=== PATIENT | female | born 2000 | race Hispanic/Latino ===

== ENCOUNTER 2022-11-25 21:49 | Emergency (ER) | payer OTHER, MEDICAID, SELFPAY ==
[2022-11-25] VITALS (8 sets, daily range): BP systolic 108–121; BP diastolic 56–77; PULSE 66–122; RESP 18–26; TEMP 37.6; O2SAT 99–100; BMI 37.8
--- NOTE | 2022-11-25 22:19 | ED_ITS ---
HPI - Nausea/Vomiting/Diarrhea General Chief complaint: Nausea/Vomiting/Diarrhea Stated complaint: N/D/V AND DIZZY X1 DAY Time Seen by Provider: 11/25/22 22:03 Source: patient and family Mode of arrival: Ambulatory History of Present Illness HPI Narrative: 22-year-old female daily smoker with a psychiatric history presents with family members in the chief complaint of a week's worth of multiple symptoms including nausea, vomiting and diarrhea. She is had multiple episodes of each and is now feeling dizzy, weak and lightheaded. She denies any runny nose or sore throat but has had the occasional dry cough. She is had subjective fever and body aches. She denies any recent travel, exposure to ill persons or recent antibiotic use. She does have some crampy abdominal discomfort that seems to build until a loose stool at which point her symptoms improved briefly Related Data Allergies Allergy/AdvReac Type Severity Reaction Status Date / Time peach Allergy Verified 11/25/22 22:15 strawberry Allergy Verified 11/25/22 22:15 Review of Systems Review of Systems Narrative: GENERAL: See HPI HEENT: See HPI RESPIRATORY: Denies dyspnea, cough, wheezing, hemoptysis, sputum. CARDIOVASCULAR: Denies chest pain, palpitations, orthopnea, edema, GASTROINTESTINAL: See HPI : Denies dysuria, frequency, incontinence, hematuria, urinary retention. MUSCULOSKELETAL: denies weakness, joint pain, or bony pain SKIN: Denies rash, skin lesions, or other NEUROLOGIC: Denies weakness, headache, numbness, change in speech, confusion, seizures, incoordination. PSYCHIATRIC: No concerning psychosocial issues. 12 point review of systems is negative except for those stated above Patient History Social History Smoking Status: Current some day smoker Smoking Status: Current some day smoker tobacco type: cigarettes alcohol intake frequency: 0-2 drinks per day Substance Use Type: does not use Exam Narrative Exam Narrative: GENERAL: [22] year old patient appears stated age. Well-developed patient, in mild distress. HEAD: Atraumatic. Normocephalic. EYES: Pupils equal round and reactive. Extraocular motions intact. No scleral icterus. No injection or drainage. ENT: Nose without bleeding, purulent drainage. Throat without erythema, tonsillar hypertrophy or exudate. Airway patent. NECK: Trachea midline. Non tender CARDIOVASCULAR: Tachycardic but regular rhythm without murmurs, gallops, or rubs. RESPIRATORY: Clear to auscultation. Breath sounds equal bilaterally. No wheezes, rales, or rhonchi. GASTROINTESTINAL: Abdomen soft, mild abdominal cramping, nondistended. EXTREMITIES: No edema or joint tenderness. BACK: Nontender without deformity or crepitance. No flank tenderness. NEURO: AOx3. SKIN: No rash or erythema of visible areas Initial Vital Signs Initial Vital Signs: Vital Signs Temperature 99.7 F H 11/25/22 22:04 Pulse Rate 122 H 11/25/22 22:04 Respiratory Rate 18 11/25/22 22:04 Blood Pressure 117/71 11/25/22 22:04 Pulse Oximetry 99 11/25/22 22:04 Oxygen Delivery Method Room Air 11/25/22 22:04 Course Orders Ordered: ED Orders 11/25/22 22:26 Ictotest Urine Stat Urine Microscopic Stat 11/25/22 22:29 GI Panel (Film Array) Stat 11/25/22 22:39 Complete Blood Count AUTO DIFF Stat Comprehensive Metabolic Panel Stat Lactate (Lactic Acid) Stat 11/25/22 22:45 Covid-19 + FLU A/B + RSV - PCR Routine Discontinued Medications Sodium Chloride (Normal Saline 0.9%) 1,000 mls @ 1,000 mls/hr IV BOLUS ONE Stop: 11/25/22 23:15 Last Infusion: 11/25/22 23:57 Dose: 0 mls/hr Documented By: Admin: 11/25/22 22:45 Dose: 1,000 mls/hr Documented By: AURY Sodium Chloride (Normal Saline 0.9%) 1,000 mls @ 1,000 mls/hr IV BOLUS ONE Stop: 11/26/22 01:22 Last Infusion: 11/26/22 01:45 Dose: 0 mls/hr Documented By: Admin: 11/26/22 00:24 Dose: 1,000 mls/hr Documented By: AURY Sodium Chloride (Normal Saline 0.9%) 1,000 mls @ 1,000 mls/hr IV BOLUS ONE Stop: 11/26/22 01:22 Last Admin: 11/26/22 00:25 Dose: Not Given Documented By: AURY Sodium Chloride (Normal Saline 0.9%) 1,000 mls @ 1,000 mls/hr IV BOLUS ONE Stop: 11/26/22 02:45 Last Admin: 11/26/22 01:49 Dose: 1,000 mls/hr Documented By: AURY Ondansetron HCl (Ondansetron 4 Mg/2 Ml Inj) 4 mg IV NOW ONE Stop: 11/25/22 22:17 Last Admin: 11/25/22 22:46 Dose: 4 mg Documented By: AURY Pantoprazole Sodium (Pantoprazole 40 Mg Vial) 40 mg IV NOW ONE Stop: 11/25/22 22:17 Last Admin: 11/25/22 22:46 Dose: 40 mg Documented By: AURY Vital Signs Vital signs: Vital Signs - 8 hr 11/25/22 22:04 11/25/22 22:36 11/25/22 22:42 Temperature 99.7 F H Pulse Rate 122 H 66 119 H Respiratory Rate 18 26 H Blood Pressure 117/71 Pulse Oximetry 99 100 Oxygen Delivery Method Room Air 11/25/22 22:42 11/25/22 23:00 11/25/22 23:02 Temperature Pulse Rate 113 H Respiratory Rate 25 H Blood Pressure 108/56 L 111/77 Pulse Oximetry 100 Oxygen Delivery Method 11/25/22 23:02 11/25/22 23:15 11/25/22 23:15 Temperature Pulse Rate 112 H 103 H Respiratory Rate 25 H 23 Blood Pressure 120/77 Pulse Oximetry 100 100 Oxygen Delivery Method 11/25/22 23:30 11/25/22 23:30 11/25/22 23:46 Temperature Pulse Rate 105 H 107 H Respiratory Rate 22 Blood Pressure 116/72 Pulse Oximetry 100 100 Oxygen Delivery Method 11/25/22 23:46 11/26/22 00:00 11/26/22 00:00 Temperature Pulse Rate 115 H Respiratory Rate Blood Pressure 121/67 113/67 Pulse Oximetry 99 Oxygen Delivery Method 11/26/22 00:15 11/26/22 00:15 11/26/22 00:20 Temperature Pulse Rate 117 H 107 H Respiratory Rate Blood Pressure 84/53 L Pulse Oximetry 99 99 Oxygen Delivery Method 11/26/22 00:21 11/26/22 00:21 11/26/22 00:24 Temperature Pulse Rate 107 H 107 H Respiratory Rate Blood Pressure 107/56 L Pulse Oximetry 100 100 Oxygen Delivery Method 11/26/22 00:24 11/26/22 00:27 11/26/22 00:27 Temperature Pulse Rate 108 H Respiratory Rate Blood Pressure 104/55 L 103/54 L Pulse Oximetry 99 Oxygen Delivery Method 11/26/22 00:30 11/26/22 00:30 11/26/22 01:00 Temperature Pulse Rate 107 H 104 H Respiratory Rate Blood Pressure 97/58 L Pulse Oximetry 100 100 Oxygen Delivery Method 11/26/22 01:08 11/26/22 01:08 11/26/22 01:10 Temperature Pulse Rate 106 H Respiratory Rate Blood Pressure 96/54 L 95/55 L Pulse Oximetry 100 Oxygen Delivery Method 11/26/22 01:10 11/26/22 01:15 11/26/22 01:15 Temperature Pulse Rate 105 H 102 H Respiratory Rate Blood Pressure 98/52 L Pulse Oximetry 100 100 Oxygen Delivery Method 11/26/22 01:20 11/26/22 01:20 11/26/22 01:25 Temperature Pulse Rate 102 H Respiratory Rate Blood Pressure 96/53 L 92/51 L Pulse Oximetry 100 Oxygen Delivery Method 11/26/22 01:25 11/26/22 01:30 11/26/22 01:30 Temperature Pulse Rate 101 H 105 H Respiratory Rate Blood Pressure 94/53 L Pulse Oximetry 100 99 Oxygen Delivery Method 11/26/22 01:35 11/26/22 01:35 11/26/22 01:39 Temperature Pulse Rate 103 H Respiratory Rate Blood Pressure 89/54 L 97/55 L Pulse Oximetry 100 Oxygen Delivery Method 11/26/22 01:39 11/26/22 01:40 11/26/22 01:40 Temperature Pulse Rate 105 H 106 H Respiratory Rate Blood Pressure 92/59 L Pulse Oximetry 100 100 Oxygen Delivery Method 11/26/22 01:45 11/26/22 01:45 11/26/22 01:49 Temperature Pulse Rate 103 H 105 H Respiratory Rate Blood Pressure 98/56 L Pulse Oximetry 100 100 Oxygen Delivery Method 11/26/22 01:50 Temperature Pulse Rate Respiratory Rate Blood Pressure 100/57 L Pulse Oximetry Oxygen Delivery Method MDM - Nausea/Vomiting/Diarrhea Lab Data 11/25/22 22:39 11/25/22 22:39 Labs: Lab Results 11/25/22 11/25/22 11/25/22 Range/Units 22:26 22:26 22:29 WBC (4.5-11.0) X10^3/uL RBC (4.0-5.2) X10^6/uL Hgb (12.0-16.0) g/dL Hct (36-46) % MCV (80-100) fL MCH (26-34) PG MCHC (30-36) % RDW (11.6-14.8) % Plt Count (150-400) X10^3/uL Neut % (Auto) (50-75) % Lymph % (Auto) (25-40) % [place] % (Auto) (3-14) % Eos % (Auto) (2-4) % Baso % (Auto) (0-2) % Neut # (Auto) (5204-0559) /uL Lymph # (Auto) (7238-4126) /uL [place] # (Auto) (0-900) /uL Eos # (Auto) (0-450) /uL Baso # (Auto) (0-100) /uL Sodium (137-145) mmol/L Potassium (3.4-5.1) mmol/L Chloride (98-107) mmol/L Carbon Dioxide (22-32) mmol/L BUN (7-17) mg/dL Creatinine (0.52-1.04) mg/dL Estimated GFR (>60) mL/min BUN/Creatinine Ratio (6-22) Glucose (70-100) mg/dL Lactate (0.7-2.1) mmol/L Calcium (8.4-10.2) mg/dL Total Bilirubin (0.2-1.3) mg/dL AST (14-36) IU/L ALT (<35) IU/L Alkaline Phosphatase (38-126) U/L Total Protein (6.3-8.2) g/dL Albumin (3.5-5.0) g/dL Globulin (1.7-4.1) g/dL Albumin/Globulin Ratio (1.0-2.8) Ur Bilirubin Confirm Negative (Negative) Urine RBC 5-10/hpf H (0-5/HPF) Urine WBC None seen (0-5/HPF) Ur Squamous Epith Cells 1-5 /hpf (0-5/HPF) Amorphous Sediment 1+ Urine Bacteria Few (2-10) H (None) Urine Mucus 2+ H (Negative) Ur Culture Indicated? Cult not indicated Stl C. cayetanensis PCR Not detected (Not Detect) Stool Rotavirus (PCR) Not detected (Not Detect) Stool Adenovirus (PCR) Not detected (Not Detect) Stool Astrovirus (PCR) Not detected (Not Detect) Stool Cryptosporidium PCR Not detected (Not Detect) Stl E.coli Shiga Tox PCR Not detected (Not Detect) St Sh/Enteroin Ecoli PCR Not detected (Not Detect) Stool E coli O157 PCR Not detected (Not Detect) Stl Enterotoxigenic E PCR Not detected (Not Detect) Stool EPEC (PCR) Not detected (Not Detect) Stl E. histolytica PCR Not detected (Not Detect) Stool Giardia Lamblia PCR Not detected (Not Detect) Stool Sapovirus (PCR) Not detected (Not Detect) Stl P. shigelloides PCR Not detected (Not Detect) St Y.enterocolitica PCR Not detected (Not Detect) Stool Vibrio (PCR) Not detected (Not Detect) Stl Vibrio cholerae PCR Not detected (Not Detect) Stl Enteroaggr Ecoli PCR Not detected (Not Detect) Stl Norovirus GI/GII PCR Detected H (Not Detect) Campylobacter (PCR) Not detected (Not Detect) C. difficile Tox (PCR) Not detected (Not Detect) SARS-CoV-2 (PCR) Cancelled Influenza A (RT-PCR) Cancelled Influenza B (RT-PCR) Cancelled RSV (PCR) Cancelled Salmonella (PCR) Not detected (Not Detect) 11/25/22 11/25/22 11/25/22 Range/Units 22:39 22:39 22:39 WBC 11.3 H (4.5-11.0) X10^3/uL RBC 5.11 (4.0-5.2) X10^6/uL Hgb 14.2 (12.0-16.0) g/dL Hct 42.0 (36-46) % MCV 82.1 (80-100) fL MCH 27.7 (26-34) PG MCHC 33.8 (30-36) % RDW 14.0 (11.6-14.8) % Plt Count 282 (150-400) X10^3/uL Neut % (Auto) 84.0 H (50-75) % Lymph % (Auto) 9.9 L (25-40) % [place] % (Auto) 5.2 (3-14) % Eos % (Auto) 0.7 L (2-4) % Baso % (Auto) 0.2 (0-2) % Neut # (Auto) 9500 H (8102-2206) /uL Lymph # (Auto) 1100 (7135-0229) /uL [place] # (Auto) 600 (0-900) /uL Eos # (Auto) 100 (0-450) /uL Baso # (Auto) 0 (0-100) /uL Sodium 135 L (137-145) mmol/L Potassium 4.0 (3.4-5.1) mmol/L Chloride 103 (98-107) mmol/L Carbon Dioxide 21 L (22-32) mmol/L BUN 16 (7-17) mg/dL Creatinine 0.75 (0.52-1.04) mg/dL Estimated GFR > 60 (>60) mL/min BUN/Creatinine Ratio 21.3 (6-22) Glucose 91 (70-100) mg/dL Lactate 1.3 (0.7-2.1) mmol/L Calcium 9.1 (8.4-10.2) mg/dL Total Bilirubin 1.0 (0.2-1.3) mg/dL AST 21 (14-36) IU/L ALT 22 (<35) IU/L Alkaline Phosphatase 74 (38-126) U/L Total Protein 8.5 H (6.3-8.2) g/dL Albumin 4.7 (3.5-5.0) g/dL Globulin 3.8 (1.7-4.1) g/dL Albumin/Globulin Ratio 1.2 (1.0-2.8) Ur Bilirubin Confirm (Negative) Urine RBC (0-5/HPF) Urine WBC (0-5/HPF) Ur Squamous Epith Cells (0-5/HPF) Amorphous Sediment Urine Bacteria (None) Urine Mucus (Negative) Ur Culture Indicated? Stl C. cayetanensis PCR (Not Detect) Stool Rotavirus (PCR) (Not Detect) Stool Adenovirus (PCR) (Not Detect) Stool Astrovirus (PCR) (Not Detect) Stool Cryptosporidium PCR (Not Detect) Stl E.coli Shiga Tox PCR (Not Detect) St Sh/Enteroin Ecoli PCR (Not Detect) Stool E coli O157 PCR (Not Detect) Stl Enterotoxigenic E PCR (Not Detect) Stool EPEC (PCR) (Not Detect) Stl E. histolytica PCR (Not Detect) Stool Giardia Lamblia PCR (Not Detect) Stool Sapovirus (PCR) (Not Detect) Stl P. shigelloides PCR (Not Detect) St Y.enterocolitica PCR (Not Detect) Stool Vibrio (PCR) (Not Detect) Stl Vibrio cholerae PCR (Not Detect) Stl Enteroaggr Ecoli PCR (Not Detect) Stl Norovirus GI/GII PCR (Not Detect) Campylobacter (PCR) (Not Detect) C. difficile Tox (PCR) (Not Detect) SARS-CoV-2 (PCR) Influenza A (RT-PCR) Influenza B (RT-PCR) RSV (PCR) Salmonella (PCR) (Not Detect) Point of Care Testing Test Results Negative Glucose POC 91 Urine Dip Bedside Urine Glucose Negative Bedside Urine Bilirubin + 1 Bedside Urine Ketone - Negative Urine Specific [place] 1.025 Bedside Urine Occult Blood +++ Bedside Urine pH 6.0 Bedside Urine Protein - Negative Bedside Urine Urobilinogen - Negative Bedside Urine Nitrite - Negative Bedside Urine Leukocytes - Negative Esterase MDM Narrative Medical decision making narrative: [22] year old patient presents with Multiple etiologies for patient's symptoms considered including, but not limited to: [dehydration, viral diarrhea] Prior Charts reviewed in our EMR Primary Historian: patient Labs reviewed and interpreted by myself: GI panel notes norovirus. Serum labs note a slight leukocytosis and no true left shift. Chemistries and renal function appropriate Patient's symptoms improved over duration of stay with above-stated therapies. Patient has received a few L of fluids, her heart rate is down into the 90s, blood pressure in the 110s, she is tolerating orals and ambulating through the department requesting discharge Findings and discharge diagnosis discussed with patient/family followed by verbalization of understanding Return precautions discussed with patient/family whom verbalize understanding of diagnosis and plan Discharge Plan Departure Patient Disposition: Home Clinical Impression: Norovirus Instructions: DI for Dehydration -- Adult, DI for Norovirus Infection Activity Restrictions/Additional Instructions: *You have been diagnosed with [norovirus] * As we discussed your history and physical exam as well as labs and imaging are very reassuring. There is no evidence of any severe diagnoses that would require a specific or immediate intervention. *What to do: *Please continue to take your regular medications as directed. *Please follow up with your primary care provider in 2-3 days, call for an appointment. Let them know you were seen in the Emergency Department and that we ask that you be seen in follow up. We will electronically transmit a record of today's note if your PCP is in our system *Please consider a clear liquid diet for the next 24-48 hours and then slowly advance to regular as tolerated. Also, try to avoid alcohol, nicotine, caffeine, spicy, acidic or fatty foods as this may worsen your symptoms *If you do not have a primary care provider please contact the [facility] Resource line at [phone]. They will ask some questions about your medical history and help get you set up with a doctor in the community. *Return to Emergency Department if you should have any new, worsening or concerning symptoms, such as [fever greater than 101 F, shaking chills, worsening pain, persistent vomiting or other bothersome symptoms] Referrals: Conrado Quezada MD [Primary Care Provider] - Stand Alone Forms: Patient Portal/API
[2022-11-25] MEDS: SODIUM CHLORIDE 0.9% 1,000 ML 1000 ML IV (22:45)
[2022-11-25] MEDS: ONDANSETRON 4 MG/2 ML INJ IV (22:46)
[2022-11-25] MEDS: PANTOPRAZOLE 40 MG VIAL IV (22:46)
[2022-11-25 22:50] LABS: Add Manual Diff / Slide Review NO; Basophils Absolute Auto 0 /uL (0-100); Basophils Percent Auto 0.2 % (0-2); Eosinophils Absolute Auto 100 /uL (0-450); Eosinophils Percent Auto 0.7 % (2-4); Hemoglobin 14.2 g/dL (12.0-16.0); Lymphocytes Absolute Auto 1100 /uL (1100-4500); Lymphocytes Percent Auto 9.9 % (25-40); Mean Corpuscular HGB Conc 33.8 % (30-36); Mean Corpuscular Hemoglobin 27.7 PG (26-34); Mean Corpuscular Volume 82.1 fL (80-100); Monocytes Absolute Auto 600 /uL (0-900); Monocytes Percent Auto 5.2 % (3-14); Neutrophils Absolute Auto 9500 /uL (1500-7000); Platelet Count 282 X10^3/uL (150-400); Red Blood Cell Count 5.11 X10^6/uL (4.0-5.2); White Blood Cell Count 11.3 X10^3/uL (4.5-11.0)
--- NOTE | 2022-11-25 22:54 | PC.NURSE ---
Pt reports worsening N&V and diarrhea over the last week with some SOB. Pt feels really cold and almost passes out when walking. Pt denies abdominal pain & chest pain. Pt denies recent travel, denies sick contacts. Hx of depression and pt is on 75mg of bupropion. LMP 10/24/22. Call light within reach. Encouraged to use for needs.
[2022-11-25 23:03] LABS: Lactate (Lactic Acid) 1.3 mmol/L (0.7-2.1)
[2022-11-25 23:04] LABS: Alanine Aminotransferase 22 IU/L (<35); Albumin 4.7 g/dL (3.5-5.0); Albumin Globulin Ratio 1.2 (1.0-2.8); Alkaline Phosphatase 74 U/L (38-126); Aspartate Aminotransferase 21 IU/L (14-36); BUN Creatinine Ratio 21.3 (6-22); Blood Urea Nitrogen 16 mg/dL (7-17); Calcium 9.1 mg/dL (8.4-10.2); Carbon Dioxide 21 mmol/L (22-32); Chloride 103 mmol/L (98-107); Estimated Glomerular Filt Rate > 60 mL/min (>60); Globulin 3.8 g/dL (1.7-4.1); Glucose 91 mg/dL (70-100); HEMOLYSIS 21 (0-50); Sodium 135 mmol/L (137-145); Total Protein 8.5 g/dL (6.3-8.2)
[2022-11-25 23:20] LABS: RBC Urine 5-10/HPF (0-5/HPF); WBC Urine None Seen (0-5/HPF)
[2022-11-25 23:21] LABS: Amorphous Sediment Urine 1+; Bacteria Urine Few (2-10); Squamous Epithelial Cell Urine 1-5 /HPF (0-5/HPF)
[2022-11-25 23:22] LABS: Culture Indicated Urine Cult Not Indicated; Mucus Urine 2+ (Negative)
[2022-11-25 23:23] LABS: Ictotest Urine Negative (Negative)
[2022-11-26] VITALS (34 sets, daily range): BP systolic 80–113; BP diastolic 40–67; PULSE 100–117; O2SAT 99–100
[2022-11-26] MEDS: SODIUM CHLORIDE 0.9% 1,000 ML 1000 ML IV ×2 (00:24→01:49)
[2022-11-26 00:35] LABS: Adenovirus F 40/41 Not Detected (Not Detect); Astrovirus Not Detected (Not Detect); Campylobacter Not Detected (Not Detect); Clostridium difficile toxin AB Not Detected (Not Detect); Cryptosporidium Not Detected (Not Detect); Cyclospora cayetanensis Not Detected (Not Detect); Entamoeba histolytica Not Detected (Not Detect); Enteroaggregative E.coli Not Detected (Not Detect); Enteropathogenic E.coli Not Detected (Not Detect); Enterotoxigenic E.coli It/st Not Detected (Not Detect); Giardia lamblia Not Detected (Not Detect); Norovirus GI/GII Detected (Not Detect); Plesiomonsa shigelloides Not Detected (Not Detect); Rotavirus A Not Detected (Not Detect); Salmonella Not Detected (Not Detect); Sapovirus Not Detected (Not Detect); Shiga-like toxin-prod E.coli Not Detected (Not Detect); Shigella/Enteroinvasive E.coli Not Detected (Not Detect); Vibrio Not Detected (Not Detect); Vibrio cholerae Not Detected (Not Detect); Yersinia enterocolitica Not Detected (Not Detect)
== END 2022-11-26 03:16 | disposition home or self-care (01) ==
PROVIDERS: Emergency Provider Emergency Medicine; PCP Pediatrics
DX: A08.11 Acute gastroenteropathy due to Norwalk agent (principal); R05.9 Cough, unspecified; Z20.822 Contact with and (suspected) exposure to COVID-19
CPT/HCPCS: 36415; 80053; 81003; 81015; 81025; 82962; 83605; 85025; 87040; 87507; 93005; 93010; 96361; 96374; 96375; 99284; C9113; J2405

== ENCOUNTER 2023-07-08 21:00 | Emergency (ER) | payer OTHER, MEDICAID, SELFPAY ==
--- NOTE | 2023-07-08 21:12 | DI.US.S_ITS ---
PROCEDURE: US OB <= 14 WEEKS FETUS INDICATIONS: BLEEDING OUTSIDE/PRIOR DATING DATA: Last menstrual period (LMP): 05/10/23. LMP-based estimated date of delivery (EMILEE): 02/14/2024. First dating scan (date and location): 07/08/2023. Estimated date of delivery (EMILEE) from first dating scan: 02/23/2024. TECHNIQUE: Real-time scanning was performed of the fetus and maternal pelvic organs, with image documentation. Endovaginal scanning was also performed to better visualize the fetus and maternal ovaries. COMPARISON: None. FINDINGS: There is an intrauterine . Embryo: 1.1 cm, corresponding to gestational age 7 weeks 1 day. Heart rate: 162 BPM. Maternal organs: Cervix is closed. No perigestational bleed. There is a 1.2 cm corpus luteal cyst in the left ovary. Right ovary is not visualized. No right adnexal mass. No free fluid in the cul-de-sac or adnexa. IMPRESSION: 1. A single living intrauterine gestation with an estimated gestational age of 7 weeks 1 day corresponding to ultrasound EMILEE 02/23/2024. 2. Cervix is closed. No perigestational bleed. 3. A 1.2 cm corpus luteal cyst in left ovary. Right ovary is not visualized. We strive to produce accurate, complete, and clear reports of imaging services. To assist us in improving patient care, this report was composed using standard report templates and voice recognition software. Therefore, it may contain abnormal punctuation, insertions and/or omissions. Occasional wrong-word or sound-alike substitutions may occur. Though we review the report and make efforts to correct it, we do recommend that the report be read carefully in proper context to recognize any text inaccuracies. Dictated by: Tony Christiansen M.D. on 07/08/2023 at 22:27 Approved by: Tony Christiansen M.D. on 07/08/2023 at 22:31
[2023-07-08 21:13] VITALS: BP 145/72; PULSE 86; RESP 17; TEMP 36.6; O2SAT 98; BMI 49.1
[2023-07-08 21:44] LABS: Add Manual Diff / Slide Review NO; Basophils Absolute Auto 100 /uL (0-100); Basophils Percent Auto 0.5 % (0-2); Eosinophils Absolute Auto 200 /uL (0-450); Eosinophils Percent Auto 1.1 % (2-4); Hematocrit 36.6 % (36-46); Lymphocytes Absolute Auto 3300 /uL (1100-4500); Lymphocytes Percent Auto 21.4 % (25-40); Mean Corpuscular HGB Conc 32.8 % (30-36); Mean Corpuscular Hemoglobin 27.7 PG (26-34); Mean Corpuscular Volume 84.5 fL (80-100); Monocytes Absolute Auto 1100 /uL (0-900); Monocytes Percent Auto 7.2 % (3-14); Neutrophils Absolute Auto 10600 /uL (1500-7000); Neutrophils Percent Auto 69.8 % (50-75); Platelet Count 262 X10^3/uL (150-400); Red Blood Cell Count 4.33 X10^6/uL (4.0-5.2); Red Cell Distribution Width 15.6 % (11.6-14.8); White Blood Cell Count 15.2 X10^3/uL (4.5-11.0)
[2023-07-08 21:49] LABS: Appearance Urine UA CLEAR; Bilirubin Urine UA NEGATIVE (NEGATIVE); Color Urine UA YELLOW; Glucose Urine UA NEGATIVE (Negative); Ketones Urine UA NEGATIVE (NEGATIVE); Leukocyte Esterase Urine UA NEGATIVE (NEGATIVE); Nitrite Urine UA NEGATIVE (Negative); Occult Blood Urine UA 2+ (Negative); Protein Urine UA NEGATIVE (Negative); Specific Gravity Urine UA >=1.030 (1.000-1.035); Urobilinogen Urine UA 0.2 E.U./dL (0.2)
[2023-07-08 21:51] LABS: pH Urine UA 5.5 (4.5-8.0)
[2023-07-08 21:52] LABS: Bacteria Urine Moderate (10-30); RBC Urine 0-1/HPF (0-5/HPF)
[2023-07-08 21:53] LABS: Culture Indicated Urine Specimen Cultured; Mucus Urine 1+ (Negative); Squamous Epithelial Cell Urine 5-10 /HPF (0-5/HPF); WBC Urine 5-10/HPF (0-5/HPF)
[2023-07-08 21:53] LABS: Alanine Aminotransferase 22 IU/L (<35); Albumin 3.7 g/dL (3.5-5.0); Albumin Globulin Ratio 1.1 (1.0-2.8); Alkaline Phosphatase 61 U/L (38-126); Aspartate Aminotransferase 17 IU/L (14-36); Bilirubin Total 0.3 mg/dL (0.2-1.3); Blood Urea Nitrogen 12 mg/dL (7-17); Calcium 9.2 mg/dL (8.4-10.2); Carbon Dioxide 23 mmol/L (22-32); Chloride 102 mmol/L (98-107); Estimated Glomerular Filt Rate > 60 mL/min (>60); Globulin 3.4 g/dL (1.7-4.1); Glucose 84 mg/dL (70-100); HEMOLYSIS < 15 (0-50); Potassium 3.8 mmol/L (3.4-5.1); Sodium 135 mmol/L (137-145); Total Protein 7.1 g/dL (6.3-8.2)
[2023-07-08 21:56] VITALS: BP 131/58; PULSE 87; O2SAT 100
[2023-07-08 22:00] VITALS: PULSE 95; O2SAT 98
[2023-07-08 22:03] VITALS: BP 120/59; PULSE 85; O2SAT 98
[2023-07-08 22:30] VITALS: PULSE 95; O2SAT 99
--- NOTE | 2023-07-08 22:30 | ED_ITS ---
HPI - General Chief complaint: Vaginal Bleeding Stated complaint: MISCARRIAGE Time Seen by Provider: 07/08/23 22:05 Source: patient and family Mode of arrival: Ambulatory History of Present Illness HPI Narrative: Patient is a 23-year-old female presenting today with known and some vaginal bleeding. She reports she is had some back pain some cramping on when she wiped she noticed a small amount blood. No nausea or vomiting. She is some urinary frequency. He is concerned tissues had 2 previous miscarriages this was a happy surprise but was not trying to get . He so far is [facility] and does not yet have an OBGYN. Related Data Previous Rx's Medication Instructions Recorded cephalexin 500 mg capsule 500 mg PO BID 5 days #10 caps 07/08/23 40-iron fum 27 mg 1 cap PO DAILY #60 caps 07/08/23 iron-folic acid 800 mcg-dha 250 mg capsule ( Multi-DHA (algal oil)) Allergies Allergy/AdvReac Type Severity Reaction Status Date / Time peach Allergy Verified 07/08/23 21:17 strawberry Allergy Verified 07/08/23 21:17 Exam Initial Vital Signs Initial Vital Signs: Vital Signs Temperature 98 F 07/08/23 21:13 Pulse Rate 86 07/08/23 21:13 Respiratory Rate 17 07/08/23 21:13 Blood Pressure 145/72 H 07/08/23 21:13 Pulse Oximetry 98 07/08/23 21:13 Oxygen Delivery Method Room Air 07/08/23 21:13 GENERAL: Alert well-appearing 23-year-old female BMI 49 CARDIOVASCULAR: peripheral pulses in tact, cap refill <2 sec RESPIRATORY: No respiratory distress, speaks in full sentences without difficulty ABDOMEN: Soft, nontender, no guarding or rebound : No CVA tenderness EXTREMITIES: Normal range of motion, no clubbing or edema. Neurovascularly intact NEUROLOGICAL: Cranial nerves II through XII grossly intact. Normal gait and speech. SKIN: Warm, dry, no petechiae, no rashes or lesions. Course Orders Ordered: ED Orders 07/08/23 21:12 US OB <= 14 weeks fetus Stat 07/08/23 21:30 ABO RH Type Stat Complete Blood Count AUTO DIFF Stat Comprehensive Metabolic Panel Stat HCG Quantitative /Beta subunit Stat 07/08/23 21:35 Urinalysis and Microscopic Stat Urine Culture Stat Discontinued Medications Cefazolin Sodium (Cephalexin 250 Mg Cap Prepack) 1 bottle MISC SEEINSTR ONE Stop: 07/08/23 22:56 Last Admin: 07/08/23 23:03 Dose: 1 bottle Documented By: JUAN JOSÉ Vital Signs Vital signs: Vital Signs - 8 hr 07/08/23 21:13 07/08/23 21:56 07/08/23 21:56 Temperature 98 F Pulse Rate 86 87 Respiratory Rate 17 Blood Pressure 145/72 H 131/58 L Pulse Oximetry 98 100 Oxygen Delivery Method Room Air 07/08/23 22:00 07/08/23 22:03 07/08/23 22:03 Temperature Pulse Rate 95 H 85 Respiratory Rate Blood Pressure 120/59 L Pulse Oximetry 98 98 Oxygen Delivery Method Room Air 07/08/23 22:30 07/08/23 22:31 07/08/23 22:31 Temperature Pulse Rate 95 H 90 Respiratory Rate Blood Pressure 127/59 L Pulse Oximetry 99 99 Oxygen Delivery Method MDM - OB/Uterine Contractions Lab Data 07/08/23 21:30 07/08/23 21:30 Labs: Lab Results 07/08/23 07/08/23 Range/Units 21:30 21:35 WBC 15.2 H (4.5-11.0) X10^3/uL RBC 4.33 (4.0-5.2) X10^6/uL Hgb 12.0 (12.0-16.0) g/dL Hct 36.6 (36-46) % MCV 84.5 (80-100) fL MCH 27.7 (26-34) PG MCHC 32.8 (30-36) % RDW 15.6 H (11.6-14.8) % Plt Count 262 (150-400) X10^3/uL Neut % (Auto) 69.8 (50-75) % Lymph % (Auto) 21.4 L (25-40) % [place] % (Auto) 7.2 (3-14) % Eos % (Auto) 1.1 L (2-4) % Baso % (Auto) 0.5 (0-2) % Neut # (Auto) 81876 H (1376-1024) /uL Lymph # (Auto) 3300 (9547-1873) /uL [place] # (Auto) 1100 H (0-900) /uL Eos # (Auto) 200 (0-450) /uL Baso # (Auto) 100 (0-100) /uL Sodium 135 L (137-145) mmol/L Potassium 3.8 (3.4-5.1) mmol/L Chloride 102 (98-107) mmol/L Carbon Dioxide 23 (22-32) mmol/L BUN 12 (7-17) mg/dL Creatinine 0.60 (0.52-1.04) mg/dL Estimated GFR > 60 (>60) mL/min BUN/Creatinine Ratio 20.0 (6-22) Glucose 84 (70-100) mg/dL Calcium 9.2 (8.4-10.2) mg/dL Total Bilirubin 0.3 (0.2-1.3) mg/dL AST 17 (14-36) IU/L ALT 22 (<35) IU/L Alkaline Phosphatase 61 (38-126) U/L Total Protein 7.1 (6.3-8.2) g/dL Albumin 3.7 (3.5-5.0) g/dL Globulin 3.4 (1.7-4.1) g/dL Albumin/Globulin Ratio 1.1 (1.0-2.8) HCG, Quant 11159 mIU/mL Urine Color Yellow Urine Appearance Clear Urine pH 5.5 (4.5-8.0) Ur Specific [place] >=1.030 H (1.000-1.035) Urine Protein Negative (Negative) Urine Glucose (UA) Negative (Negative) g/dL Urine Ketones Negative (NEGATIVE) Urine Occult Blood 2+ H (Negative) Urine Nitrate Negative (Negative) Urine Bilirubin Negative (NEGATIVE) Urine Urobilinogen 0.2 (0.2) E.U./dL Ur Leukocyte Esterase Negative (NEGATIVE) Urine RBC 0-1/hpf (0-5/HPF) Urine WBC 5-10/hpf H (0-5/HPF) Ur Squamous Epith Cells 5-10 /hpf H (0-5/HPF) Urine Bacteria Moderate (10-30) H (None) Urine Mucus 1+ H (Negative) Ur Culture Indicated? Specimen cultured Blood Type O Positive Imaging Data US - OB: Radiologist's Impression: PROCEDURE: US OB <= 14 WEEKS FETUS INDICATIONS: BLEEDING OUTSIDE/PRIOR DATING DATA: Last menstrual period (LMP): 05/10/23. LMP-based estimated date of delivery (EMILEE): 02/14/2024. First dating scan (date and location): 07/08/2023. Estimated date of delivery (EMILEE) from first dating scan: 02/23/2024. TECHNIQUE: Real-time scanning was performed of the fetus and maternal pelvic organs, with image documentation. Endovaginal scanning was also performed to better visualize the fetus and maternal ovaries. COMPARISON: None. FINDINGS: There is an intrauterine . Embryo: 1.1 cm, corresponding to gestational age 7 weeks 1 day. Heart rate: 162 BPM. Maternal organs: Cervix is closed. No perigestational bleed. There is a 1.2 cm corpus luteal cyst in the left ovary. Right ovary is not visualized. No right adnexal mass. No free fluid in the cul-de-sac or adnexa. IMPRESSION: 1. A single living intrauterine gestation with an estimated gestational age of 7 weeks 1 day corresponding to ultrasound EMILEE 02/23/2024. 2. Cervix is closed. No perigestational bleed. 3. A 1.2 cm corpus luteal cyst in left ovary. Right ovary is not visualized. We strive to produce accurate, complete, and clear reports of imaging services. To assist us in improving patient care, this report was composed using standard report templates and voice recognition software. Therefore, it may contain abnormal punctuation, insertions and/or omissions. Occasional wrong-word or sound-alike substitutions may occur. Though we review the report and make efforts to correct it, we do recommend that the report be read carefully in proper context to recognize any text inaccuracies. Dictated by: Tony Christiansen M.D. on 07/08/2023 at 22:27 [facility] Narrative Medical decision making narrative: Patient today is 23-year-old female history of presenting today with scant amount of vaginal bleeding no . She is not yet had an ultrasound with . She is concerned she is having cramping. Ultrasound confirms live IUP weeks 1 day out. Gestational bleeding. She is a mild leukocytosis of 15 but is afebrile. Urine is quite dirty but will go ahead and treat her for UTI. Blood type is O positive no need for RhoGAM. HCG 66,689. At this time supportive care only. Discussed prenatals and needing builder beam. Which she is working on Discharge Plan Departure Patient Disposition: Home Clinical Impression: Urinary tract infection affecting Instructions: DI for Urinary Tract Infection (UTI), DI for Vaginal Bleeding During Activity Restrictions/Additional Instructions: *You have been diagnosed with UTI in *What to do: Congratulations your are due 02/23/2024. You were currently 7 weeks and 1 day. You do have a minor bladder infection will go ahead and treat you with some antibiotics. Please follow-up with OBGYN. Increase fluids. Eat small frequent meals to help with nausea. *Continue to take medications as directed--> [facility] Keflex 500 mg twice a day for 5 days Prenatals once daily *Follow up with your primary care provider in 2-3 days or call [phone] *Return to ER if you should have increasing pain bleeding cramping [or] any new, worsening or concerning symptoms Prescriptions: New cephalexin 500 mg capsule 500 mg PO BID 5 Days Qty: 10 0RF Multi-DHA (algal oil) 27mg iron- 800 mcg-250 mg capsule 1 cap PO DAILY Qty: 60 0RF Referrals: Siri Calderón DO [Physician] - Maria Del Carmen Everett MD [Physician] - Doris Brown MD [Physician] - Conrado Quezada MD [Primary Care Provider] - Roberta Mejia DO [Physician] - Kodak Lopez MD [Physician] - Stand Alone Forms: Patient Portal/API
[2023-07-08 22:31] VITALS: BP 127/59; PULSE 90; O2SAT 99
[2023-07-08 22:34] LABS: HCG Quantitative /Beta subunit 66689 mIU/mL
[2023-07-08] MEDS: cephALEXin 250 MG CAP PREPACK 1 BOTTLE MISC (23:03)
== END 2023-07-08 23:08 | disposition home or self-care (01) ==
PROVIDERS: Emergency Provider Emergency Medicine; PCP Pediatrics
DX: O23.41 Unspecified infection of urinary tract in pregnancy, first trimester (principal); N39.0 Urinary tract infection, site not specified; Z3A.01 Less than 8 weeks gestation of pregnancy
CPT/HCPCS: 36415; 76801; 76817; 80053; 81001; 84702; 85025; 86900; 86901; 87086; 99281; 99284

== ENCOUNTER 2023-07-17 18:15 | Emergency (ER) | payer OTHER, MEDICAID, SELFPAY ==
[2023-07-17 18:21] VITALS: BP 135/74; PULSE 100; RESP 20; TEMP 36.7; O2SAT 98; BMI 43.5
[2023-07-17 20:13] VITALS: BP 128/79; PULSE 82; RESP 20; O2SAT 98
[2023-07-17 20:14] LABS: Add Manual Diff / Slide Review NO; Basophils Absolute Auto 100 /uL (0-100); Basophils Percent Auto 0.7 % (0-2); Eosinophils Absolute Auto 100 /uL (0-450); Eosinophils Percent Auto 0.5 % (2-4); Hematocrit 37.5 % (36-46); Hemoglobin 12.6 g/dL (12.0-16.0); Lymphocytes Absolute Auto 3400 /uL (1100-4500); Lymphocytes Percent Auto 20.9 % (25-40); Mean Corpuscular HGB Conc 33.5 % (30-36); Mean Corpuscular Hemoglobin 27.9 PG (26-34); Mean Corpuscular Volume 83.3 fL (80-100); Monocytes Absolute Auto 900 /uL (0-900); Monocytes Percent Auto 5.5 % (3-14); Neutrophils Absolute Auto 11700 /uL (1500-7000); Neutrophils Percent Auto 72.4 % (50-75); Platelet Count 301 X10^3/uL (150-400); Red Cell Distribution Width 14.9 % (11.6-14.8); White Blood Cell Count 16.2 X10^3/uL (4.5-11.0)
[2023-07-17] MEDS: SODIUM CHLORIDE 0.9% 1,000 ML 1000 ML IV (20:16)
[2023-07-17 20:34] VITALS: PULSE 90; O2SAT 99
[2023-07-17 20:37] LABS: Bacteria Urine None Seen; RBC Urine 0-1/HPF (0-5/HPF); Squamous Epithelial Cell Urine 5-10 /HPF (0-5/HPF); WBC Urine 1-5/HPF (0-5/HPF)
[2023-07-17 20:38] LABS: Culture Indicated Urine Cult Not Indicated; Mucus Urine 1+ (Negative)
[2023-07-17 20:41] LABS: Alanine Aminotransferase 21 IU/L (<35); Albumin 4.3 g/dL (3.5-5.0); Albumin Globulin Ratio 1.2 (1.0-2.8); Alkaline Phosphatase 58 U/L (38-126); Aspartate Aminotransferase 20 IU/L (14-36); BUN Creatinine Ratio 18.2 (6-22); Bilirubin Total 0.6 mg/dL (0.2-1.3); Blood Urea Nitrogen 10 mg/dL (7-17); Calcium 9.7 mg/dL (8.4-10.2); Carbon Dioxide 22 mmol/L (22-32); Chloride 102 mmol/L (98-107); Estimated Glomerular Filt Rate > 60 mL/min (>60); Globulin 3.7 g/dL (1.7-4.1); Glucose 90 mg/dL (70-100); HEMOLYSIS < 15 (0-50); Potassium 3.8 mmol/L (3.4-5.1); Sodium 135 mmol/L (137-145)
--- NOTE | 2023-07-17 20:42 | ED.BACK ---
HPI - Back Pain/Injury General Chief Complaint: Back Pain/Injury Stated Complaint: SEVERE BACK PAIN/ VOMITTING/CHEST PX/ DIZZY/-SLEEP Time Seen by Provider: 07/17/23 19:56 Source: patient History of Present Illness HPI Narrative: Patient 23-year-old female presenting today with ongoing back pain and dizziness. She reports that she is had back pain ever since she felt like she was she takes Tylenol for it. She reports that every time she moves to clean house or do anything it hurts it is mostly on the left side it is in the same place today. She reports she and her maybe broke up has been left last night she severe panic attack. She felt like she threw up more than normal last night. She feels nauseous at times. No fever no abdominal pain no vaginal bleeding. She was seen and evaluated here July 08 by myself diagnosed with UTI but on 5 days of Keflex. Ultimately urinalysis did not show any growth. She also had ultrasound which showed 7 week IUP. She is an appointment next week with Ob. She reports that she is feeling down and depressed she does have a history of depression. She denies any thoughts of self-harm or homicidal ideations. Related Data Previous Rx's Medication Instructions Recorded 40-iron fum 27 mg 1 cap PO DAILY #60 caps 07/08/23 iron-folic acid 800 mcg-dha 250 mg capsule ( Multi-DHA (algal oil)) Allergies Allergy/AdvReac Type Severity Reaction Status Date / Time peach Allergy Verified 07/08/23 21:17 strawberry Allergy Verified 07/08/23 21:17 Patient History Social History Smoking Status: Former smoker Smoking Status: Former smoker tobacco type: cigarettes alcohol intake frequency: other Substance Use Type: does not use Exam Initial Vital Signs Initial Vital Signs: Vital Signs Temperature 98.0 F 07/17/23 18:21 Pulse Rate 100 H 07/17/23 18:21 Respiratory Rate 20 07/17/23 18:21 Blood Pressure 135/74 07/17/23 18:21 Pulse Oximetry 98 07/17/23 18:21 Oxygen Delivery Method Room Air 07/17/23 18:21 GENERAL: Alert well-appearing 23-year-old female HEENT: Head atraumatic,EOMI, pupils reactive, face symmetric, moist mucous membranes CARDIOVASCULAR: Regular rate and rhythm without murmurs, rubs or gallops. RESPIRATORY: Breath sounds equal bilaterally, no wheezes rales or rhonchi. ABDOMEN: Soft, nontender. Normoactive bowel sounds all 4 quadrants. No guarding or rebound. EXTREMITIES: Normal range of motion, no clubbing or edema. Neurovascularly intact NEUROLOGICAL: Alert and oriented x4.Normal gait and speech. SKIN: Warm, dry, no laceration, no petechiae, no rashes or lesions. Course Orders Ordered: ED Orders 07/17/23 20:04 CBC Auto Diff [Complete Blood Count AUTO DIFF] Stat CMP [Comprehensive Metabolic Panel] Stat 07/17/23 20:17 Urine Microscopic Stat Discontinued Medications Acetaminophen (Acetaminophen 325 Mg Tablet) 975 mg PO NOW ONE Stop: 07/17/23 20:43 Last Admin: 07/17/23 20:58 Dose: 975 mg Documented By: HENRRY Sodium Chloride (Normal Saline 0.9%) 1,000 mls @ 1,000 mls/hr IV BOLUS ONE Stop: 07/17/23 20:55 Last Infusion: 07/17/23 20:58 Dose: Infused Documented By: Admin: 07/17/23 20:16 Dose: 1,000 mls/hr Documented By: HENRRY Vital Signs Vital signs: Vital Signs - 8 hr 07/17/23 18:21 07/17/23 20:13 07/17/23 20:34 Temperature 98.0 F Pulse Rate 100 H 82 90 Respiratory Rate 20 20 Blood Pressure 135/74 128/79 Pulse Oximetry 98 98 99 Oxygen Delivery Method Room Air Room Air Room Air 07/17/23 21:00 07/17/23 21:00 Temperature 97.7 F Pulse Rate 109 H Respiratory Rate Blood Pressure 112/55 L Pulse Oximetry 98 Oxygen Delivery Method Room Air MDM - Back Pain/Injury Lab Data 07/17/23 20:04 07/17/23 20:04 Labs: Lab Results 07/17/23 07/17/23 Range/Units 20:04 20:17 WBC 16.2 H (4.5-11.0) X10^3/uL RBC 4.50 (4.0-5.2) X10^6/uL Hgb 12.6 (12.0-16.0) g/dL Hct 37.5 (36-46) % MCV 83.3 (80-100) fL MCH 27.9 (26-34) PG MCHC 33.5 (30-36) % RDW 14.9 H (11.6-14.8) % Plt Count 301 (150-400) X10^3/uL Neut % (Auto) 72.4 (50-75) % Lymph % (Auto) 20.9 L (25-40) % [place] % (Auto) 5.5 (3-14) % Eos % (Auto) 0.5 L (2-4) % Baso % (Auto) 0.7 (0-2) % Neut # (Auto) 61053 H (0798-2866) /uL Lymph # (Auto) 3400 (8908-1598) /uL [place] # (Auto) 900 (0-900) /uL Eos # (Auto) 100 (0-450) /uL Baso # (Auto) 100 (0-100) /uL Sodium 135 L (137-145) mmol/L Potassium 3.8 (3.4-5.1) mmol/L Chloride 102 (98-107) mmol/L Carbon Dioxide 22 (22-32) mmol/L BUN 10 (7-17) mg/dL Creatinine 0.55 (0.52-1.04) mg/dL Estimated GFR > 60 (>60) mL/min BUN/Creatinine Ratio 18.2 (6-22) Glucose 90 (70-100) mg/dL Calcium 9.7 (8.4-10.2) mg/dL Total Bilirubin 0.6 (0.2-1.3) mg/dL AST 20 (14-36) IU/L ALT 21 (<35) IU/L Alkaline Phosphatase 58 (38-126) U/L Total Protein 8.0 (6.3-8.2) g/dL Albumin 4.3 (3.5-5.0) g/dL Globulin 3.7 (1.7-4.1) g/dL Albumin/Globulin Ratio 1.2 (1.0-2.8) Urine RBC 0-1/hpf (0-5/HPF) Urine WBC 1-5/hpf (0-5/HPF) Ur Squamous Epith Cells 5-10 /hpf H (0-5/HPF) Urine Bacteria None seen (None) Urine Mucus 1+ H (Negative) Ur Culture Indicated? Cult not indicated Urine Dip Bedside Urine Glucose Negative Bedside Urine Bilirubin - Negative Bedside Urine Ketone + 15 Urine Specific [place] 1.030 Bedside Urine Occult Blood +/- Bedside Urine pH 6.0 Bedside Urine Protein +/- 15 Bedside Urine Urobilinogen - Negative Bedside Urine Nitrite - Negative Bedside Urine Leukocytes - Negative Esterase MDM Narrative Medical decision making narrative: Patient well-appearing 23-year-old female she is had mild leukocytosis of 16 no UTI she would ketones in her urine she was given a L of fluid. No electrolyte abnormality or LINNETTE. She is chronic left-sided back pain no abdominal pain or vaginal bleeding. She is had this back pain number of weeks he is no abdominal pain I see no need to repeat ultrasound she had 1 last week. She staying with her mom dad and brother she feels safe. We discussed other remedies for nausea. She reports that she feels depressed denies any suicidal or homicidal ideations. We also discussed how she can talk about this with her new OB as well and may or may not require antidepressant Discharge Plan Departure Patient Disposition: Home Clinical Impression: Back pain affecting in first trimester Instructions: Common Discomforts and Bodily Changes During , DI for -- Discomforts and Remedies Activity Restrictions/Additional Instructions: *You have been diagnosed with back pain with in *What to do: At this time recommend light stretching light movement walking can help. Please talk to your OB about an antidepressant. Things to help nausea eating frequent meals staying hydrated as best you can randolph chews randolph tea vitamin B6 *Continue to take medications as directed *Follow up with your primary care provider in 2-3 days or call [phone] *Return to ER if you should have vaginal bleeding abdominal pain persistent vomiting or any new, worsening or concerning symptoms Prescriptions: No Action Multi-DHA (algal oil) 27mg iron- 800 mcg-250 mg capsule 1 cap PO DAILY Qty: 60 0RF Referrals: Conrado Quezada MD [Primary Care Provider] - Stand Alone Forms: Patient Portal/API
[2023-07-17] MEDS: ACETAMINOPHEN 325 MG TABLET 975 MG PO (20:58)
[2023-07-17 21:00] VITALS: BP 112/55; PULSE 109; TEMP 36.5; O2SAT 98
== END 2023-07-17 21:07 | disposition home or self-care (01) ==
PROVIDERS: Emergency Provider Emergency Medicine; PCP Pediatrics
DX: O26.891 Other specified pregnancy related conditions, first trimester (principal); M54.89 Other dorsalgia; Z3A.00 Weeks of gestation of pregnancy not specified; Z87.891 Personal history of nicotine dependence
CPT/HCPCS: 36415; 80053; 81003; 81015; 85025; 99283; 99284

== ENCOUNTER 2023-08-03 22:23 | Emergency (ER) | payer OTHER, MEDICAID, SELFPAY ==
[2023-08-03 22:32] VITALS: BP 133/69; PULSE 82; RESP 18; TEMP 37; O2SAT 100; BMI 49.1
[2023-08-03] MEDS: SODIUM CHLORIDE 0.9% 1,000 ML 1000 ML IV (23:12)
--- NOTE | 2023-08-03 23:14 | ED.BACK ---
HPI - Back Pain/Injury General Chief Complaint: Back Pain/Injury Stated Complaint: , significant pain, nausea, vomiting Time Seen by Provider: 08/03/23 22:37 Source: patient Mode of arrival: Ambulatory Limitations: no limitations History of Present Illness HPI Narrative: 23-year-old female. She states this is her 1st . She is approximately 11 weeks along. She has seen OB. She is a known IUP based on a prior ultrasound. She is not having any cramping, vaginal bleeding, loss of fluid. She arrives because of nausea and vomiting. She is also having some low back pain. She is had low back pain throughout the but this evening it got worse. She was sitting on the floor. She got up. Went to go lay in bed. And then had a sudden onset of pain. It is both sides and lower back. Related Data Previous Rx's Medication Instructions Recorded 40-iron fum 27 mg 1 cap PO DAILY #60 caps 07/08/23 iron-folic acid 800 mcg-dha 250 mg capsule ( Multi-DHA (algal oil)) ondansetron 4 mg disintegrating 4 mg PO Q6H PRN nausea and 08/04/23 tablet vomiting #14 tabs Allergies Allergy/AdvReac Type Severity Reaction Status Date / Time peach Allergy Verified 07/08/23 21:17 strawberry Allergy Verified 07/08/23 21:17 Review of Systems Constitutional Constitutional: Reports system reviewed and no additional complaints, except as documented Gastrointestinal Gastrointestinal: Reports system reviewed and no additional complaints, except as documented Genitourinary Genitourinary: Reports system reviewed and no additional complaints, except as documented Musculoskeletal Musculoskeletal: Reports system reviewed and no additional complaints, except as documented Neurologic Neurologic: Reports system reviewed and no additional complaints, except as documented Patient History Social History Smoking Status: Former smoker Smoking Status: Former smoker tobacco type: cigarettes alcohol intake frequency: other Substance Use Type: does not use Exam Initial Vital Signs Initial Vital Signs: Vital Signs Temperature 98.6 F 08/03/23 22:32 Pulse Rate 82 08/03/23 22:32 Respiratory Rate 18 08/03/23 22:32 Blood Pressure 133/69 08/03/23 22:32 Pulse Oximetry 100 08/03/23 22:32 Oxygen Delivery Method Room Air 08/03/23 22:32 Const General: cooperative and comfortable HENND Head: normal to inspection and normocephalic GI Inspection: normal to inspection and non-distended Palpation: soft and No tender Back/Spine/Pelvis Thoracic/Lumbar Spine: paraspinal tenderness and No lumbar spinal tenderness Extrem General: normal to inspection and capillary refill normal Course Orders Ordered: ED Orders 08/04/23 00:05 Urine Culture Stat Urine Microscopic Stat Discontinued Medications Hydrocodone Bitart/Acetaminophen (Hydrocodone/Acet 5/325 Tablet) 1 tab PO NOW ONE Stop: 08/03/23 23:38 Last Admin: 08/03/23 23:48 Dose: 1 tab Documented By: ELISHA Sodium Chloride (Normal Saline 0.9%) 1,000 mls @ 1,000 mls/hr IV BOLUS ONE Stop: 08/03/23 23:49 Last Infusion: 08/04/23 00:12 Dose: Infused Documented By: Admin: 08/03/23 23:12 Dose: 1,000 mls/hr Documented By: VIDAL Ondansetron HCl (Ondansetron 4 Mg/2 Ml Inj) 4 mg IV NOW ONE Stop: 08/03/23 22:51 Last Admin: 08/03/23 23:15 Dose: 4 mg Documented By: VIDAL Ondansetron HCl (Ondansetron 4 Mg Odt Prepack) 1 bottle MISC DIRECTED ONE Stop: 08/04/23 00:29 Vital Signs Vital signs: Vital Signs - 8 hr 08/03/23 22:32 Temperature 98.6 F Pulse Rate 82 Respiratory Rate 18 Blood Pressure 133/69 Pulse Oximetry 100 Oxygen Delivery Method Room Air MDM - Back Pain/Injury Lab Data Attestation: I reviewed the patient's lab results. Labs: Lab Results 08/04/23 Range/Units 00:05 Urine RBC 1-5/hpf (0-5/HPF) Urine WBC 1-5/hpf (0-5/HPF) Ur Squamous Epith Cells 5-10 /hpf H (0-5/HPF) Urine Bacteria Moderate (10-30) H (None) Urine Mucus 1+ H (Negative) Ur Culture Indicated? Specimen cultured Urine Dip Bedside Urine Glucose Negative Bedside Urine Bilirubin - Negative Bedside Urine Ketone ++ 40 Urine Specific [place] 1.030 Bedside Urine Occult Blood +/- Bedside Urine pH 6.0 Bedside Urine Protein - Negative Bedside Urine Urobilinogen - Negative Bedside Urine Nitrite - Negative Bedside Urine Leukocytes +/- 15 Esterase MDM Narrative Medical decision making narrative: She is not having any specific OB related complaints. No vaginal bleeding. No abdominal pain. Her urinalysis is unremarkable. No indication for ultrasound. No fevers. No specific trauma. No indication for other radiologic studies. She is now tolerating oral intake. Pain is better after treatment here in the ER. Will discharge patient home with instructions to keep her scheduled medical appointments. She was given return precautions. She expressed understanding and agreement. Discharge Plan Departure Patient Disposition: Home Clinical Impression: Nausea, Back pain Instructions: Nausea of (Alternative Therapy), DI for Low Back Pain Activity Restrictions/Additional Instructions: It is important that you keep all of your scheduled medical appointments specifically with your OB provider. You can try conservative measures for your back discomfort to include heat/ice and massage and Tylenol and also light stretching. Return to the emergency department for new symptoms Prescriptions: New ondansetron 4 mg tablet,disintegrating 4 mg PO Q6H PRN (Reason: nausea and vomiting) Qty: 14 0RF No Action Multi-DHA (algal oil) 27mg iron- 800 mcg-250 mg capsule 1 cap PO DAILY Qty: 60 0RF Referrals: Conrado Quezada MD [Primary Care Provider] - Stand Alone Forms: Patient Portal/API, Work Release Note
[2023-08-03] MEDS: ONDANSETRON 4 MG/2 ML INJ IV (23:15)
[2023-08-03] MEDS: HYDROCODONE/ACET 5/325 TABLET 1 TAB PO (23:48)
[2023-08-04 00:22] LABS: RBC Urine 1-5/HPF (0-5/HPF)
[2023-08-04 00:23] LABS: Bacteria Urine Moderate (10-30); Squamous Epithelial Cell Urine 5-10 /HPF (0-5/HPF)
[2023-08-04 00:24] LABS: Culture Indicated Urine Specimen Cultured; Mucus Urine 1+ (Negative); WBC Urine 1-5/HPF (0-5/HPF)
[2023-08-04] MEDS: ONDANSETRON 4 MG ODT PREPACK 1 BOTTLE MISC (00:37)
[2023-08-04 00:39] VITALS: BP 135/71; PULSE 96; RESP 16; TEMP 36.8; O2SAT 98
== END 2023-08-04 00:40 | disposition home or self-care (01) ==
PROVIDERS: Emergency Provider Emergency Medicine; PCP Pediatrics
DX: O26.891 Other specified pregnancy related conditions, first trimester (principal); R11.0 Nausea; M54.9 Dorsalgia, unspecified; Z3A.11 11 weeks gestation of pregnancy
CPT/HCPCS: 36415; 81003; 81015; 87086; 96360; 96361; 96374; 99284; J2405

== ENCOUNTER 2023-08-08 18:16 | Emergency (ER) | payer OTHER, MEDICAID, SELFPAY ==
[2023-08-08 18:25] VITALS: BP 139/82; PULSE 98; RESP 16; TEMP 36.7; O2SAT 98; BMI 49.1
--- NOTE | 2023-08-08 18:47 | PC.NURSE ---
pt reports she fell in the shower and got dizzy within the last hour. reports 11 weeks , first , denies dizziness at this time. denies cp/sob. denies abd pain/vag bleed. reports dizziness is intermittent. ambulatory with steady gait. VSS.
[2023-08-08 19:04] LABS: Appearance Urine UA SL CLOUDY; Bilirubin Urine UA NEGATIVE (NEGATIVE); Color Urine UA YELLOW; Glucose Urine UA NEGATIVE (Negative); Ketones Urine UA TRACE (NEGATIVE); Leukocyte Esterase Urine UA 1+ (NEGATIVE); Nitrite Urine UA NEGATIVE (Negative); Occult Blood Urine UA TRACE-INTACT (Negative); Protein Urine UA NEGATIVE (Negative); Specific Gravity Urine UA 1.025 (1.000-1.035); Urobilinogen Urine UA 0.2 E.U./dL (0.2)
[2023-08-08 19:10] LABS: pH Urine UA 5.5 (4.5-8.0)
[2023-08-08 19:20] LABS: Bacteria Urine Moderate (10-30); Culture Indicated Urine Specimen Cultured; RBC Urine 1-5/HPF (0-5/HPF); Squamous Epithelial Cell Urine 1-5 /HPF (0-5/HPF); WBC Urine 10-30/HPF (0-5/HPF)
[2023-08-08] MEDS: SODIUM CHLORIDE 0.9% 1,000 ML 1000 ML IV (19:20)
[2023-08-08 19:26] LABS: Add Manual Diff / Slide Review NO; Basophils Absolute Auto 100 /uL (0-100); Basophils Percent Auto 0.4 % (0-2); Eosinophils Absolute Auto 100 /uL (0-450); Eosinophils Percent Auto 0.8 % (2-4); Hematocrit 36.8 % (36-46); Hemoglobin 12.3 g/dL (12.0-16.0); Lymphocytes Absolute Auto 2800 /uL (1100-4500); Lymphocytes Percent Auto 18.2 % (25-40); Mean Corpuscular HGB Conc 33.3 % (30-36); Mean Corpuscular Hemoglobin 27.8 PG (26-34); Mean Corpuscular Volume 83.4 fL (80-100); Monocytes Absolute Auto 1000 /uL (0-900); Monocytes Percent Auto 6.5 % (3-14); Neutrophils Absolute Auto 11400 /uL (1500-7000); Neutrophils Percent Auto 74.1 % (50-75); Platelet Count 250 X10^3/uL (150-400); Red Blood Cell Count 4.41 X10^6/uL (4.0-5.2); Red Cell Distribution Width 14.5 % (11.6-14.8); White Blood Cell Count 15.4 X10^3/uL (4.5-11.0)
[2023-08-08 19:38] LABS: Alanine Aminotransferase 20 IU/L (<35); Albumin Globulin Ratio 1.1 (1.0-2.8); Alkaline Phosphatase 62 U/L (38-126); Aspartate Aminotransferase 17 IU/L (14-36); BUN Creatinine Ratio 23.7 (6-22); Bilirubin Total 0.4 mg/dL (0.2-1.3); Blood Urea Nitrogen 14 mg/dL (7-17); Calcium 9.3 mg/dL (8.4-10.2); Carbon Dioxide 23 mmol/L (22-32); Chloride 103 mmol/L (98-107); Estimated Glomerular Filt Rate > 60 mL/min (>60); Globulin 3.5 g/dL (1.7-4.1); Glucose 97 mg/dL (70-100); HEMOLYSIS < 15 (0-50); Sodium 134 mmol/L (137-145); Total Protein 7.5 g/dL (6.3-8.2)
--- NOTE | 2023-08-08 19:42 | ED.DIZZY ---
HPI - Dizziness General Chief Complaint: Dizziness Stated Complaint: GLF in shower, Dizzy, Back injury Time Seen by Provider: 08/08/23 18:43 Source: patient Mode of arrival: Ambulatory History of Present Illness HPI Narrative: Patient 23-year-old female currently 11 weeks here for her 3rd visit this month. She reports that she got dizzy and passed out in the shower. She is actually not sure that she lost consciousness but she fell and hurt her. She denies any chest pain or palpitations no abdominal pain or cramping no vaginal bleeding. She was seen evaluated here on the for back pain. She is a known IUP. Denies any painful frequent urination no fever or chills. She has pain in her sacrum after falling. Would like some Tylenol. Related Data Previous Rx's Medication Instructions Recorded 40-iron fum 27 mg 1 cap PO DAILY #60 caps 07/08/23 iron-folic acid 800 mcg-dha 250 mg capsule ( Multi-DHA (algal oil)) ondansetron 4 mg disintegrating 4 mg PO Q6H PRN nausea and 08/04/23 tablet vomiting #14 tabs nitrofurantoin 100 mg PO Q12H 5 days #10 caps 08/08/23 monohydrate/macrocrystals 100 mg capsule (Macrobid) Allergies Allergy/AdvReac Type Severity Reaction Status Date / Time peach Allergy Verified 07/08/23 21:17 strawberry Allergy Verified 07/08/23 21:17 Patient History Social History Smoking Status: Former smoker Smoking Status: Former smoker tobacco type: cigarettes alcohol intake frequency: other Substance Use Type: does not use Exam Initial Vital Signs Initial Vital Signs: Vital Signs Temperature 98.0 F 08/08/23 18:25 Pulse Rate 98 H 08/08/23 18:25 Respiratory Rate 16 08/08/23 18:25 Blood Pressure 139/82 08/08/23 18:25 Pulse Oximetry 98 08/08/23 18:25 Oxygen Delivery Method Room Air 08/08/23 18:25 GENERAL: Alert 23-year-old well-appearing female and in no acute distress. HEENT: Head atraumatic,EOMI, pupils reactive, face symmetric, moist mucous membranes CARDIOVASCULAR: Regular rate and rhythm without murmurs, rubs or gallops. RESPIRATORY: Breath sounds equal bilaterally, no wheezes rales or rhonchi. ABDOMEN: Soft, nontender. Normoactive bowel sounds all 4 quadrants. No guarding or rebound. : No CVA tenderness EXTREMITIES: Normal range of motion, no clubbing or edema. 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 Course Orders Ordered: ED Orders 08/08/23 18:42 Urinalysis and Microscopic Stat Urine Culture Stat 08/08/23 19:09 EKG-12 Lead Stat 08/08/23 19:16 CBC Auto Diff [Complete Blood Count AUTO DIFF] Stat CMP [Comprehensive Metabolic Panel] Stat Discontinued Medications Acetaminophen (Acetaminophen 325 Mg Tablet) 975 mg PO NOW ONE Stop: 08/08/23 20:34 Last Admin: 08/08/23 20:41 Dose: 975 mg Documented By: HENRRY Sodium Chloride (Normal Saline 0.9%) 1,000 mls @ 1,000 mls/hr IV BOLUS ONE Stop: 08/08/23 19:54 Last Infusion: 08/08/23 20:32 Dose: Infused Documented By: Admin: 08/08/23 19:20 Dose: 1,000 mls/hr Documented By: SHARAN Nitrofurantoin Macrocrystals (Nitrofurantoin Er 100 Mg Capsule) 100 mg PO NOW ONE Stop: 08/08/23 20:23 Last Admin: 08/08/23 20:29 Dose: 100 mg Documented By: HENRRY Vital Signs Vital signs: Vital Signs - 8 hr 08/08/23 20:03 08/08/23 20:46 08/08/23 20:46 Temperature 97.8 F Pulse Rate 83 83 Respiratory Rate 18 Blood Pressure 129/66 Pulse Oximetry 98 99 Oxygen Delivery Method Room Air MDM - Dizziness Lab Data 08/08/23 19:16 08/08/23 19:16 Labs: Lab Results 08/08/23 08/08/23 Range/Units 18:42 19:16 WBC 15.4 H (4.5-11.0) X10^3/uL RBC 4.41 (4.0-5.2) X10^6/uL Hgb 12.3 (12.0-16.0) g/dL Hct 36.8 (36-46) % MCV 83.4 (80-100) fL MCH 27.8 (26-34) PG MCHC 33.3 (30-36) % RDW 14.5 (11.6-14.8) % Plt Count 250 (150-400) X10^3/uL Neut % (Auto) 74.1 (50-75) % Lymph % (Auto) 18.2 L (25-40) % Churchill % (Auto) 6.5 (3-14) % Eos % (Auto) 0.8 L (2-4) % Baso % (Auto) 0.4 (0-2) % Neut # (Auto) 86702 H (0073-8855) /uL Lymph # (Auto) 2800 (4073-2667) /uL Churchill # (Auto) 1000 H (0-900) /uL Eos # (Auto) 100 (0-450) /uL Baso # (Auto) 100 (0-100) /uL Sodium 134 L (137-145) mmol/L Potassium 4.0 (3.4-5.1) mmol/L Chloride 103 (98-107) mmol/L Carbon Dioxide 23 (22-32) mmol/L BUN 14 (7-17) mg/dL Creatinine 0.59 (0.52-1.04) mg/dL Estimated GFR > 60 (>60) mL/min BUN/Creatinine Ratio 23.7 H (6-22) Glucose 97 (70-100) mg/dL Calcium 9.3 (8.4-10.2) mg/dL Total Bilirubin 0.4 (0.2-1.3) mg/dL AST 17 (14-36) IU/L ALT 20 (<35) IU/L Alkaline Phosphatase 62 (38-126) U/L Total Protein 7.5 (6.3-8.2) g/dL Albumin 4.0 (3.5-5.0) g/dL Globulin 3.5 (1.7-4.1) g/dL Albumin/Globulin Ratio 1.1 (1.0-2.8) Urine Color Yellow Urine Appearance Sl cloudy Urine pH 5.5 (4.5-8.0) Ur Specific [place] 1.025 (1.000-1.035) Urine Protein Negative (Negative) Urine Glucose (UA) Negative (Negative) g/dL Urine Ketones Trace H (NEGATIVE) Urine Occult Blood Trace-intact (Negative) Urine Nitrate Negative (Negative) Urine Bilirubin Negative (NEGATIVE) Urine Urobilinogen 0.2 (0.2) E.U./dL Ur Leukocyte Esterase 1+ H (NEGATIVE) Urine RBC 1-5/hpf (0-5/HPF) Urine WBC 10-30/hpf H (0-5/HPF) Ur Squamous Epith Cells 1-5 /hpf (0-5/HPF) Urine Bacteria Moderate (10-30) H (None) Ur Culture Indicated? Specimen cultured ECG Data Interpretation: Sinus rhythm rate 78 AR interval 112 QRS 86 QTC 470 MDM Narrative Medical decision making narrative: Patient currently 11 weeks presenting today with a near syncopal episode shower. Having some low back pain. No focal deficits meat service team member strength equal. She received a L of fluid blood work has been reviewed and is overall reassuring. She is no abdominal pain or vaginal bleeding. No need for ultrasound. She is here regularly. She does have some bacteria leukocytes in urine will go ahead and treat for UTI although previously urine cultures have not grown anything. No evidence of sepsis she is given her 1st dose of Macrobid. At this time no need for any further evaluation Discharge Plan Departure Patient Disposition: Home Clinical Impression: UTI (urinary tract infection) Instructions: DI for Urinary Tract Infection (UTI) Activity Restrictions/Additional Instructions: *You have been diagnosed with UTI *What to do: At this time your blood work is overall reassuring you will might have a mild bladder infection. Be sure to drink water a lot of it regularly *Continue to take medications as directed Macrobid 100 mg twice a day for 5 days--> [facility] *Follow up with your primary care provider in 2-3 days or call [phone] *Return to ER if you should have recurrent episode of passing out or any new, worsening or concerning symptoms Prescriptions: New nitrofurantoin monohyd/m-cryst [Macrobid] 100 mg capsule 100 mg PO Q12H 5 Days Qty: 10 0RF Rx Instructions: must administer with a meal/food No Action Multi-DHA (algal oil) 27mg iron- 800 mcg-250 mg capsule 1 cap PO DAILY Qty: 60 0RF ondansetron 4 mg tablet,disintegrating 4 mg PO Q6H PRN (Reason: nausea and vomiting) Qty: 14 0RF Referrals: Conrado Quezada MD [Primary Care Provider] - Stand Alone Forms: Patient Portal/API
[2023-08-08 20:03] VITALS: PULSE 83; RESP 18; O2SAT 98
[2023-08-08] MEDS: NITROFURANTOIN ER 100 MG CAPSULE PO (20:29)
[2023-08-08] MEDS: ACETAMINOPHEN 325 MG TABLET 975 MG PO (20:41)
[2023-08-08 20:46] VITALS: BP 129/66; PULSE 83; TEMP 36.6; O2SAT 99
== END 2023-08-08 20:53 | disposition home or self-care (01) ==
PROVIDERS: Emergency Provider Emergency Medicine; PCP Pediatrics
DX: O23.41 Unspecified infection of urinary tract in pregnancy, first trimester (principal); N39.0 Urinary tract infection, site not specified; O26.891 Other specified pregnancy related conditions, first trimester; M54.50 Low back pain, unspecified; O99.411 Diseases of the circulatory system complicating pregnancy, first trimester; I49.8 Other specified cardiac arrhythmias; W18.2XXA Fall in (into) shower or empty bathtub, initial encounter; Z3A.11 11 weeks gestation of pregnancy
CPT/HCPCS: 36415; 80053; 81001; 85025; 87086; 93005; 96360; 99284

== ENCOUNTER 2023-08-27 19:59 | Emergency (ER) | payer OTHER, MEDICAID, SELFPAY ==
[2023-08-27 20:05] VITALS: BP 143/74; PULSE 75; RESP 18; TEMP 36.9; O2SAT 98; BMI 49.1
--- NOTE | 2023-08-27 20:11 | DI.US.S_ITS ---
PROCEDURE: US OB LIMITED INDICATIONS: BLEEDING OUTSIDE/PRIOR DATING DATA: Last menstrual period (LMP): 05/10/2023. LMP-based estimated date of delivery (EMILEE): 02/14/2024. First dating scan (date and location): 07/08/2023. Estimated date of delivery (EMILEE) from first dating scan: 02/23/2024. TECHNIQUE: Real-time scanning was performed of the fetus, with image documentation. COMPARISON: [facility], OB <= 14 WEEKS FETUS, 07/08/2023, 21:36. FINDINGS: A single living intrauterine gestation is present. Presentation: Vertex. Placenta: Placental position is anterior, without previa. Amniotic fluid index: Grossly within normal limits. heart rate: 153 beats per minute. Maternal cervical canal: 3.0 cm long. Normal lower limit is 2.5 cm. Estimated gestational age from current scan: 15 weeks 4 days. IMPRESSION: Single live intrauterine without evidence of previa or abruption. Dictated by: Marion Tay M.D. on 08/27/2023 at 21:25 Approved by: Marion Tay M.D. on 08/27/2023 at 21:27
[2023-08-27 20:38] LABS: Add Manual Diff / Slide Review NO; Basophils Absolute Auto 100 /uL (0-100); Basophils Percent Auto 0.8 % (0-2); Eosinophils Absolute Auto 100 /uL (0-450); Eosinophils Percent Auto 0.8 % (2-4); Hematocrit 35.6 % (36-46); Hemoglobin 11.9 g/dL (12.0-16.0); Lymphocytes Absolute Auto 2800 /uL (1100-4500); Lymphocytes Percent Auto 19.8 % (25-40); Mean Corpuscular HGB Conc 33.6 % (30-36); Mean Corpuscular Hemoglobin 27.8 PG (26-34); Mean Corpuscular Volume 82.8 fL (80-100); Monocytes Absolute Auto 800 /uL (0-900); Monocytes Percent Auto 5.9 % (3-14); Neutrophils Absolute Auto 10200 /uL (1500-7000); Neutrophils Percent Auto 72.7 % (50-75); Platelet Count 278 X10^3/uL (150-400); Red Cell Distribution Width 14.4 % (11.6-14.8); White Blood Cell Count 13.9 X10^3/uL (4.5-11.0)
[2023-08-27 20:42] LABS: Alanine Aminotransferase 19 IU/L (<35); Albumin 4.1 g/dL (3.5-5.0); Albumin Globulin Ratio 1.1 (1.0-2.8); Alkaline Phosphatase 71 U/L (38-126); Aspartate Aminotransferase 17 IU/L (14-36); BUN Creatinine Ratio 25.9 (6-22); Bilirubin Total 0.5 mg/dL (0.2-1.3); Blood Urea Nitrogen 14 mg/dL (7-17); Calcium 9.7 mg/dL (8.4-10.2); Carbon Dioxide 23 mmol/L (22-32); Chloride 100 mmol/L (98-107); Estimated Glomerular Filt Rate > 60 mL/min (>60); Globulin 3.6 g/dL (1.7-4.1); Glucose 88 mg/dL (70-100); HEMOLYSIS < 15 (0-50); Potassium 3.9 mmol/L (3.4-5.1); Sodium 132 mmol/L (137-145); Total Protein 7.7 g/dL (6.3-8.2)
--- NOTE | 2023-08-27 22:59 | ED.PREGNANCY ---
HPI - General Chief complaint: OB/Uterine Contractions Stated complaint: 15 weeks , cramping Time Seen by Provider: 08/27/23 22:32 Source: patient Mode of arrival: Ambulatory History of Present Illness HPI Narrative: woman at 15 weeks gestation comes in with cramping and bleeding today. No trauma. No dysuria urgency or frequency. No abdominal pain otherwise. No vomiting. Concerned about bleeding in . Related Data Previous Rx's Medication Instructions Recorded 40-iron fum 27 mg 1 cap PO DAILY #60 caps 07/08/23 iron-folic acid 800 mcg-dha 250 mg capsule ( Multi-DHA (algal oil)) ondansetron 4 mg disintegrating 4 mg PO Q6H PRN nausea and 08/04/23 tablet vomiting #14 tabs Allergies Allergy/AdvReac Type Severity Reaction Status Date / Time lavender (Lavandula Allergy Swelling Verified 08/27/23 20:05 angustifolia) of Lip/Tongue/Throat peach AdvReac Hives Verified 08/27/23 20:05 strawberry AdvReac Hives Verified 08/27/23 20:05 Exam Narrative Exam Narrative: GENERAL: Alert, cooperative and in no distress. HEAD: Atraumatic. Normocephalic. EYES: Sclera are clear without icterus. Extraocular movements are full. ENT: No rhinorrhea. NECK: Supple. Full range of motion. CARDIOVASCULAR: Normal rate and rhythm without murmur gallop or rub. RESPIRATORY: Clear to auscultation. Breath sounds equal bilaterally. No wheezes, rales, or rhonchi. GASTROINTESTINAL: Abdomen soft, non-tender, nondistended. EXTREMITIES: No edema, full range of motion. No obvious trauma. NEURO: Nonfocal examination, normal speech, SKIN: No rash or erythema of visible areas PSYCH: Normally oriented. Normal range of affect. Appropriate behavior Initial Vital Signs Initial Vital Signs: Vital Signs Temperature 98.4 F 08/27/23 20:05 Pulse Rate 75 08/27/23 20:05 Respiratory Rate 18 08/27/23 20:05 Blood Pressure 143/74 H 08/27/23 20:05 Pulse Oximetry 98 08/27/23 20:05 Oxygen Delivery Method Room Air 08/27/23 20:05 Course Orders Ordered: ED Orders 08/27/23 20:11 US OB limited Stat 08/27/23 20:20 Complete Blood Count AUTO DIFF Stat Comprehensive Metabolic Panel Stat HCG Quantitative /Beta subunit Stat Type and Screen Stat Vital Signs Vital signs: Vital Signs - 8 hr 08/27/23 20:05 Temperature 98.4 F Pulse Rate 75 Respiratory Rate 18 Blood Pressure 143/74 H Pulse Oximetry 98 Oxygen Delivery Method Room Air MDM - OB/Uterine Contractions Lab Data 08/27/23 20:20 08/27/23 20:20 Labs: Lab Results 08/27/23 Range/Units 20:20 WBC 13.9 H (4.5-11.0) X10^3/uL RBC 4.30 (4.0-5.2) X10^6/uL Hgb 11.9 L (12.0-16.0) g/dL Hct 35.6 L (36-46) % MCV 82.8 (80-100) fL MCH 27.8 (26-34) PG MCHC 33.6 (30-36) % RDW 14.4 (11.6-14.8) % Plt Count 278 (150-400) X10^3/uL Neut % (Auto) 72.7 (50-75) % Lymph % (Auto) 19.8 L (25-40) % Crawford % (Auto) 5.9 (3-14) % Eos % (Auto) 0.8 L (2-4) % Baso % (Auto) 0.8 (0-2) % Neut # (Auto) 07517 H (7944-4694) /uL Lymph # (Auto) 2800 (6630-3255) /uL Crawford # (Auto) 800 (0-900) /uL Eos # (Auto) 100 (0-450) /uL Baso # (Auto) 100 (0-100) /uL Sodium 132 L (137-145) mmol/L Potassium 3.9 (3.4-5.1) mmol/L Chloride 100 (98-107) mmol/L Carbon Dioxide 23 (22-32) mmol/L BUN 14 (7-17) mg/dL Creatinine 0.54 (0.52-1.04) mg/dL Estimated GFR > 60 (>60) mL/min BUN/Creatinine Ratio 25.9 H (6-22) Glucose 88 (70-100) mg/dL Calcium 9.7 (8.4-10.2) mg/dL Total Bilirubin 0.5 (0.2-1.3) mg/dL AST 17 (14-36) IU/L ALT 19 (<35) IU/L Alkaline Phosphatase 71 (38-126) U/L Total Protein 7.7 (6.3-8.2) g/dL Albumin 4.1 (3.5-5.0) g/dL Globulin 3.6 (1.7-4.1) g/dL Albumin/Globulin Ratio 1.1 (1.0-2.8) HCG, Quant 58711 mIU/mL Blood Type O Positive Antibody Screen Negative Urine Dip Bedside Urine Glucose Negative Bedside Urine Bilirubin - Negative Bedside Urine Ketone - Negative Urine Specific Excel 1.030 Bedside Urine Occult Blood - Negative Bedside Urine pH 6 Bedside Urine Protein - Negative Bedside Urine Urobilinogen - Negative Bedside Urine Nitrite - Negative Bedside Urine Leukocytes - Negative Esterase MDM Narrative Medical decision making narrative: Rh positive. Ultrasound reassuring. Blood work is also reassuring and typical with . Reassurance given to the patient. Return precautions given. No specific therapy indicated. Recommend follow-up with outpatient obstetrical provider in the coming days. Discharge Plan Departure Patient Disposition: Home Clinical Impression: Bleeding in early Activity Restrictions/Additional Instructions: No dangerous cause for bleeding is identified here. I think simply watchful waiting is all that is required for now. Limit your activities to no heavy lifting, no high impact activities. Do not put anything inside the vagina including intercourse or tampons. Follow-up with your obstetrical provider in the coming days. Return to the ED for brisk bleeding, severe pain, high fever or other severe symptoms. Prescriptions: No Action Multi-DHA (algal oil) 27mg iron- 800 mcg-250 mg capsule 1 cap PO DAILY Qty: 60 0RF ondansetron 4 mg tablet,disintegrating 4 mg PO Q6H PRN (Reason: nausea and vomiting) Qty: 14 0RF Referrals: Conrado Quezada MD [Primary Care Provider] - Stand Alone Forms: Patient Portal/API
[2023-08-27 23:07] VITALS: BP 125/72; PULSE 97; RESP 18; O2SAT 97
== END 2023-08-27 23:09 | disposition home or self-care (01) ==
PROVIDERS: Emergency Provider Family Medicine Addiction Medicine; PCP Pediatrics
DX: O46.92 Antepartum hemorrhage, unspecified, second trimester (principal); Z3A.15 15 weeks gestation of pregnancy
CPT/HCPCS: 36415; 76815; 80053; 81003; 84702; 85025; 86850; 86900; 86901; 99284

== ENCOUNTER 2023-10-13 15:45 | Emergency (ER) | payer OTHER, MEDICAID, SELFPAY ==
[2023-10-13 16:01] VITALS: BP 131/60; PULSE 89; RESP 16; TEMP 36.7; O2SAT 98; BMI 50.8
--- NOTE | 2023-10-13 16:26 | ED_ITS ---
HPI - Female Genitourinary <LETICIA Larsen - Last Filed: 10/13/23 17:05> General Chief complaint: Urogenital-Female Stated complaint: vag bleeding/pelvic pain/21 wks preg Time Seen by Provider: 10/13/23 16:16 Source: patient Mode of arrival: Ambulatory History of Present Illness HPI Narrative: 23-year-old female, 22 weeks , presents to the emergency department with concerns over hematuria and pelvic discomfort yesterday. Patient denies any vaginal bleeding. Patient does report a fullness in her suprapubic region. Last ultrasound was 4 weeks ago and has an appointment later this week. Patient went to [facility] where a urine sample was provided and was then sent home until they would contact her with results. Patient has not heard any results and is concerned about her . Patient is had UTI in the past and denies any similar symptoms. Patient reports that she has been eating, drinking, urinating and defecating normally and without difficulty. Patient was nauseous and vomited once yesterday. Patient did have some hip and back pain early this morning that has resolved. Related Data Previous Rx's Medication Instructions Recorded 40-iron fum 27 mg 1 cap PO DAILY #60 caps 07/08/23 iron-folic acid 800 mcg-dha 250 mg capsule ( Multi-DHA (algal oil)) ondansetron 4 mg disintegrating 4 mg PO Q6H PRN nausea and 08/04/23 tablet vomiting #14 tabs Allergies Allergy/AdvReac Type Severity Reaction Status Date / Time lavender (Lavandula Allergy Swelling Verified 10/13/23 16:01 angustifolia) of Lip/Tongue/Throat peach AdvReac Hives Verified 10/13/23 16:01 strawberry AdvReac Hives Verified 10/13/23 16:01 Review of Systems <LETICIA Larsen - Last Filed: 10/13/23 17:05> Review of Systems Narrative: Narrative: See HPI. GENERAL: Denies chills, fatigue, fever, sweats. HEENT: Denies sinus pain, ear pain, sore throat, difficulty swallowing, dizziness. RESPIRATORY: Denies dyspnea, cough, wheezing, sputum. CARDIOVASCULAR: Denies chest pain, palpitations, edema. GASTROINTESTINAL: Denies current nausea, vomiting, abdominal pain, diarrhea, constipation. : Denies dysuria, frequency, incontinence, hematuria, urinary retention, flank pain. MSK: Denies weakness, joint pain, or bony pain. SKIN: Denies rash, skin lesions, or pruritis. NEUROLOGIC: Denies weakness, dizziness, headache, numbness, confusion. PSYCHIATRIC: No concerning psychosocial issues. Patient History <Ángel LETICIA Chilel - Last Filed: 10/13/23 17:05> tobacco type: cigarettes alcohol intake frequency: other Last Alcoholic Drink: none Substance Use Type: does not use Exam <Ángel LETICIA Chilel - Last Filed: 10/13/23 17:05> Narrative Exam Narrative: Exam Narrative: GENERAL: This is a well-nourished, well-developed patient, in no acute distress. HEAD: Atraumatic. Normocephalic. EYES: Pupils equal round and reactive. No scleral icterus, injection or dr ainage. ENT: Nose without bleeding, purulent drainage. Airway patent. NECK: Trachea midline. No JVD or lymphadenopathy. Nontender. CARDIOVASCULAR: Regular rate and rhythm without murmurs, peripheral pulses intact, cap refill <2 sec. RESPIRATORY: Breath sounds equal and clear bilaterally. No wheezes, rales, or rhonchi. No cough. No increased respiratory effort. No accessory muscle use. GASTROINTESTINAL: Abdomen soft, non-tender, nondistended without guarding or rebound. No suprapubic pain. No CVA tenderness. MSK: Moves all extremities. Normal range of motion, no clubbing or edema. Moon rovascularly intact. NEURO: A&O x 3. SKIN: Warm, dry, no rashes or lesions noted. Initial Vital Signs Initial Vital Signs: Vital Signs Temperature 98.1 F 10/13/23 16:01 Pulse Rate 89 10/13/23 16:01 Respiratory Rate 16 10/13/23 16:01 Blood Pressure 131/60 10/13/23 16:01 Pulse Oximetry 98 10/13/23 16:01 Oxygen Delivery Method Room Air 10/13/23 16:01 Reviewed <Ángel Mac DO - Last Filed: 10/13/23 17:16> Initial Vital Signs Initial Vital Signs: Vital Signs Temperature 98.1 F 10/13/23 16:01 Pulse Rate 89 10/13/23 16:01 Respiratory Rate 16 10/13/23 16:01 Blood Pressure 131/60 10/13/23 16:01 Pulse Oximetry 98 10/13/23 16:01 Oxygen Delivery Method Room Air 10/13/23 16:01 Course <LETICIA Larsen - Last Filed: 10/13/23 17:05> Orders Ordered: ED Orders 10/13/23 16:22 Urine Microscopic Stat Vital Signs Vital signs: Vital Signs - 8 hr 10/13/23 16:01 Temperature 98.1 F Pulse Rate 89 Respiratory Rate 16 Blood Pressure 131/60 Pulse Oximetry 98 Oxygen Delivery Method Room Air <Ángel Mac DO - Last Filed: 10/13/23 17:16> Orders Ordered: ED Orders 10/13/23 16:22 Urine Microscopic Stat Vital Signs Vital signs: Vital Signs - 8 hr 10/13/23 16:01 Temperature 98.1 F Pulse Rate 89 Respiratory Rate 16 Blood Pressure 131/60 Pulse Oximetry 98 Oxygen Delivery Method Room Air MDM - Female Genitourinary <LETICIA Larsen - Last Filed: 10/13/23 17:05> Differential Diagnosis Differential diagnosis: Likely urinary tract infection and other (Hematuria) Lab Data Labs: Lab Results 10/13/23 Range/Units 16:22 Urine RBC None seen (0-5/HPF) Urine WBC 0-1/hpf (0-5/HPF) Ur Squamous Epith Cells 1-5 /hpf (0-5/HPF) Urine Bacteria Few (2-10) H (None) Ur Culture Indicated? Cult not indicated Vol Urine Centrifuged 10ml (spun) Urine Dip Bedside Urine Glucose Negative Bedside Urine Bilirubin + 1 Bedside Urine Ketone ++ 40 Urine Specific Dolores 1.030 Bedside Urine Occult Blood - Negative Bedside Urine pH 6.0 Bedside Urine Protein +/- 15 Bedside Urine Urobilinogen - Negative Bedside Urine Nitrite - Negative Bedside Urine Leukocytes - Negative Esterase MDM Narrative Medical decision making narrative: 23-year-old female with resolved hematuria. Assessment was unremarkable and point of care urine dip was not consistent with a UTI. Patient is not experi encing any UTI like symptoms and any discomfort is slowly resolving. Informed patient that we would send off a urine sample for culture and contact her with the results if it required antibiotic therapy. Patient to follow up with her OBGYN later this week. Discussed plan of care and worsening symptoms that would necessitate a return visit to the emergency department. Patient verbalized understanding and was agreeable with course of action. <Ángel Lanker, DO - Last Filed: 10/13/23 17:16> Lab Data Labs: Lab Results 10/13/23 Range/Units 16:22 Urine RBC None seen (0-5/HPF) Urine WBC 0-1/hpf (0-5/HPF) Ur Squamous Epith Cells 1-5 /hpf (0-5/HPF) Urine Bacteria Few (2-10) H (None) Ur Culture Indicated? Cult not indicated Vol Urine Centrifuged 10ml (spun) Urine Dip Bedside Urine Glucose Negative Bedside Urine Bilirubin + 1 Bedside Urine Ketone ++ 40 Urine Specific Dolores 1.030 Bedside Urine Occult Blood - Negative Bedside Urine pH 6.0 Bedside Urine Protein +/- 15 Bedside Urine Urobilinogen - Negative Bedside Urine Nitrite - Negative Bedside Urine Leukocytes - Negative Esterase Discharge Plan Departure Patient Disposition: Home Clinical Impression: Qualifiers: Weeks of gestation: 22 weeks Qualified Code(s): Z3A.22 - 22 weeks gestation of Instructions: DI for Urinary Tract Infection (UTI) Activity Restrictions/Additional Instructions: *You have been diagnosed with resolved hematuria. My assessment was encouraging and your point of care urine dip was not consistent with a UTI. Will send off a urine sample for culture and contact you with the results of her requires antibiotic therapy. Please follow-up with your OBGYN later this week, as previously scheduled. For any worsening symptoms that includes vaginal bleeding, intolerable pain, chest pain or shortness of breath, please return to the emergency department immediately. *What to do: *Please continue to take your regular medications as directed. [ ] New medication prescriptions sent to your pharmacy: [ ] [ ] New medication written as a paper prescription [x ] No new medications given *Please follow up with your primary care provider in 2-3 days, call for an appointment. Let them know you were seen in the Emergency Department and that we ask that you be seen in follow up. We will electronically transmit a record of today's note if your PCP is in our system *If you do not have a primary care provider please contact the [facility] Resource line at [phone]. They will ask some questions about your medical history and help get you set up with a doctor in the community. ? Return to ER if you should have any new, worsening or concerning symptoms, such as worsening pain, severe headache, confusion, chest pain, difficulty breathing, fever greater than 101 F, shaking chills, persistent vomiting to the point that you cannot drink fluids, or other new or worsening symptoms. Prescriptions: No Action Multi-DHA (algal oil) 27mg iron- 800 mcg-250 mg capsule 1 cap PO DAILY Qty: 60 0RF ondansetron 4 mg tablet,disintegrating 4 mg PO Q6H PRN (Reason: nausea and vomiting) Qty: 14 0RF Referrals: Conrado Quezada MD [Primary Care Provider] - Stand Alone Forms: Patient Portal/API ED Sign-out <Ángel Mac DO - Last Filed: 10/13/23 17:16> [facility] Dr Mac Co-Sign Statement: I was available for consultation during this patient's emergency department visit. This chart is signed by myself for administrative purposes only. I did not have direct contact with this patient during this visit. They were seen independently by the APC.
[2023-10-13 16:51] LABS: Bacteria Urine Few (2-10); RBC Urine None Seen (0-5/HPF); Squamous Epithelial Cell Urine 1-5 /HPF (0-5/HPF); Urine Volume 10mL (spun); WBC Urine 0-1/HPF (0-5/HPF)
[2023-10-13 16:52] LABS: Culture Indicated Urine Cult Not Indicated
== END 2023-10-13 16:41 | disposition home or self-care (01) ==
PROVIDERS: Emergency Medicine; Emergency Provider Registered Nurse; PCP Pediatrics
DX: O26.892 Other specified pregnancy related conditions, second trimester (principal); R31.9 Hematuria, unspecified; Z3A.22 22 weeks gestation of pregnancy
CPT/HCPCS: 81003; 81015; 99281; 99282

== ENCOUNTER 2023-10-21 20:01 | Observation (INO) | payer OTHER, MEDICAID, SELFPAY ==
[2023-10-21 21:56] LABS: COVID-19 CEPHEID 4-PLEX PCR Negative (Negative); Influenza A - CEPHEID Flu A NEGATIVE (NEGATIVE); Influenza B - CEPHEID Flu B NEGATIVE (NEGATIVE); Respiratory Syncytial Virus Negative (Negative)
== END 2023-10-21 22:10 | disposition home or self-care (01) ==
LOC: LABOR 20:03
PROVIDERS: Admitting Provider Student in an Organized Health Care Education/Training Program; PCP Pediatrics; Referring Provider Student in an Organized Health Care Education/Training Program; Visit Provider Student in an Organized Health Care Education/Training Program
DX: O26.892 Other specified pregnancy related conditions, second trimester (principal); R10.9 Unspecified abdominal pain; Z3A.21 21 weeks gestation of pregnancy
CPT/HCPCS: 0241U; 59025; G0378; G0379

== ENCOUNTER 2023-11-16 21:20 | Outpatient (CLI) | payer OTHER, MEDICAID, SELFPAY | END 2023-11-16 22:32 | disposition home or self-care (01) | LOC: LABOR 22:12 → OB 11-19 15:06 | PROVIDERS: PCP Pediatrics; Referring Provider Obstetrics & Gynecology; Visit Provider Obstetrics & Gynecology | DX: Z03.71 Encounter for suspected problem with amniotic cavity and membrane ruled out (principal); O26.892 Other specified pregnancy related conditions, second trimester; Z3A.25 25 weeks gestation of pregnancy; R10.2 Pelvic and perineal pain | CPT/HCPCS: 59025; 84112; G0378; G0379 ==